=== PATIENT | female | born 1945 | race Caucasian/White ===

== ENCOUNTER 2016-11-28 08:46 | Outpatient (CLI) | payer OTHER ==
[~2016-11-28 08:46] MED LIST: BENICAR20 MG PO; BENICAR40 MG PO; FISH OIL PO; LIPITOR80 MG PO; METFORMIN HCL500 MG PO; MULTIPLE VITAMIN PO; SYNTHROID50 MCG PO; VITAMIN D-31000 UNIT PO
--- NOTE | 2016-11-28 09:57 | DIAGNOSTIC IMAGING REPORT ---
PROCEDURE: US ABDOMEN VASCULAR-AAA INDICATION: AORTIC ANEURYSM TECHNIQUE: [place] scale, color Doppler and spectral ultrasound of the abdominal aorta. COMPARISON: Abdominal ultrasound 08/30/2011 FINDINGS: Prominent plaque formation. Maximal abdominal aortic diameter: Proximal 2.4 cm, mid 2.1 cm and distal 1.5 cm. Aortic peak systolic velocity of 71 cm/sec. Right iliac artery measures 1.1 cm in diameter (peak systolic velocity 172 cm/sec) and left iliac artery measures 1 cm in diameter (peak systolic velocity 130 cm/sec). IMPRESSION: 1. Prominent atherosclerosis but no evidence of an aneurysm 2. Iliac artery velocities suggestive of greater than 50% stenosis
== END 2016-11-28 23:00 ==
LOC: US SRH 08:46
DX: Z87.891 Personal history of nicotine dependence (principal)

== ENCOUNTER 2016-12-19 08:40 | Outpatient (CLI) | payer OTHER ==
--- NOTE | 2016-12-19 13:43 | DIAGNOSTIC IMAGING REPORT ---
PROCEDURE: US ART LOWER EXT WITH JIM-B/L INDICATION: PERIPHERAL ARTERY DISEASE TECHNIQUE: Preexercise ABIs were performed. The patient was exercised (toe-ups) and postexercise ABIs were repeated followed by color Doppler duplex imaging of the lower extremities. COMPARISON: None. FINDINGS: RIGHT LOWER EXTREMITY: ABIs: Pre exercise ABIs: Posterior tibial 0.7 and dorsalis pedis 0.9. VESSELS: Mild plaque. Biphasic wave form throughout the right lower extremity except for monophasic wave form of the dorsalis pedis artery. RIGHT LOWER EXTREMITY PEAK SYSTOLIC VELOCITIES: Common femoral artery: 57 cm/second. Profunda femoral artery: 49 cm/second. Proximal superficial femoral artery: 67 cm/second. Mid superficial femoral artery: 61 cm/second. Distal superficial femoral artery: 53 cm/second. Popliteal artery: 38 cm/second. Proximal posterior tibial artery: 33 cm/second. Proximal anterior tibial artery: 21 cm/second. Distal posterior tibial artery: 33 cm/second. Dorsalis pedis artery: 14 cm/second. LEFT LOWER EXTREMITY: ABIs: Pre exercise ABIs: Posterior tibial 0.7 and dorsalis pedis 0.6. VESSELS: Extensive plaque formation in the mid to distal SFA. Biphasic wave form of the common femoral and proximal SFA, with monophasic wave form through the remainder of the left lower extremity. LEFT LOWER EXTREMITY PEAK SYSTOLIC VELOCITIES: Common femoral artery: 145 cm/second. Profunda femoral artery: 97 cm/second. Proximal superficial femoral artery: 64 cm/second. Mid superficial femoral artery: 20 cm/second. Distal superficial femoral artery: 45 cm/second. Popliteal artery: 27 cm/second. Proximal posterior tibial artery: 25 cm/second. Proximal anterior tibial artery: 18 cm/second. Distal posterior tibial artery: 25 cm/second. Dorsalis pedis artery: Eight cm/second. IMPRESSION: 1. Right lower extremity: Moderate resting arterial insufficiency with mild atherosclerosis 2. Left lower extremity: Moderate resting arterial insufficiency with extensive atherosclerosis of the mid to distal SFA resulting in high grade stenosis.
--- NOTE | 2016-12-20 11:56 | DIAGNOSTIC IMAGING REPORT ---
REFERRING PHYSICIAN/PROVIDER: Belinda Lucero MD CONSULTING [employer]ECUTIVE ADMINISTRATIVE ASST: Everett Elkins Jr MD INDICATION: ABNORMAL EKG Procedure: A two-dimensional transthoracic echocardiogram with color flow and Doppler was performed. A two-dimensional transthoracic echocardiogram with color flow Doppler was performed. The patient was in normal sinus rhythm during the exam. Left Ventricle: The left ventricle is normal in size. There is mild concentric left ventricular hypertrophy. The IVSTd is 12.6 mm, LIVDd is 43.4 mm, and the LVPWTd is 12.6 mm. There is no ventricular septal defect visualized. Left ventricular systolic function is normal without focal wall motion abnormalities. The ejection fraction is estimated to be 55-60%. Assessment of diastolic parameters indicates a relaxation abnormality of the left ventricle, consistent with normal filling pressures. Right Ventricle: The right ventricle is normal in size and function. Atria: Both atria are normal in size. The interatrial septum is intact with no evidence for an atrial septal defect. Mitral Valve: The mitral valve is normal in structure and function. There is no mitral regurgitation noted. Aortic Valve: The aortic valve is trileaflet. The aortic valve opens well. No aortic regurgitation is present. Tricuspid Valve: The tricuspid valve leaflets are thin and pliable. No tricuspid regurgitation. Pulmonary artery pressures cannot be estimated because of the lack of a measurable TR jet velocity. Pulmonic Valve: The pulmonic valve is not well visualized. The pulmonic valve is not well seen, but is grossly normal. There is no pulmonic valvular regurgitation. There is no significant valvular heart disease. Great Vessels: The aortic root is normal size. The dimensions of the ascending aorta are normal. The IVC is of normal diameter and collapses greater than 50% with a sniff. This suggests a low right atrial pressure of 3 mm Hg. Pericardium/ Pleura There is no pericardial effusion. There is an anterior echo-free space consistent with a fat pad. IMPRESSION: There is mild concentric left ventricular hypertrophy. Left ventricular systolic function is normal without focal wall motion abnormalities. The ejection fraction is estimated to be 55-60%. Assessment of diastolic parameters indicates a relaxation abnormality of the left ventricle, consistent with normal filling pressures. The right ventricle is normal in size and function. Pulmonary artery pressures cannot be estimated because of the lack of a measurable TR jet velocity. Both atria are normal in size. There is no significant valvular heart disease. The aortic root is normal size.
== END 2016-12-19 23:00 ==
LOC: US SRH 08:40
DX: I70.203 Unspecified atherosclerosis of native arteries of extremities, bilateral legs (principal); R94.31 Abnormal electrocardiogram [ECG] [EKG]

== ENCOUNTER 2017-01-04 12:04 | Outpatient (CLI) | payer OTHER ==
--- NOTE | 2017-01-09 10:52 | DIAGNOSTIC IMAGING REPORT ---
REFERRING PHYSICIAN/PROVIDER: Hola Lucero MD ATTENDING PHYSICIAN/PROVIDER: Hola Lucero CONSULTING [facility]IL[employer]IR[employer] AND INFANT CARE TEACHER: Belinda Lucero MD PROCEDURE PERFORMED: Pharmacologic stress test with myocardial perfusion imaging and quantitative gated SPECT to evaluate wall motion and left ventricular systolic function. INDICATION: ABNORMAL EKG RADIOPHARMACEUTICAL: Rest dose 10 mCi Tc 99 m Sestamibi Stress test 29 mCi Tc 99m Sestamibi PROCEDURAL DETAILS: Following informed consent the patient walked on Eugenio protocol for 7 minutes and 12 seconds achieving 8.8 minutes. The patient had normal heart rate and blood pressure response. There was [address] depression in leads II, III, avF, V3-V6. There were occasional PVCs. To treadmill score is two. The patient did not have chest pain during physical activity. ECG DATA: Dynamic ST depressions RAW DATA: Normal myocardial tracer uptake. Lung heart ratio is grossly normal. T.i.d. is 1 QUANTITATIVE GATED SPECT: At peak stress ejection fraction 69%. Rest ejection fraction is 68%. There is inferolateral hypokinesis. Otherwise normal wall motion throughout. MYOCARDIAL PERFUSION STUDY: There is a medium size moderate intensity partially reversible lateral wall perfusion defect consistent with ischemia and circumflex territory. SSS 8 SRS 2 SDS 6 IMPRESSION: 1. Abnormal medium risk graded exercise stress test with myocardial perfusion imaging. 2. Medium size moderate intensity partially reversible lateral perfusion defect consistent with ischemia in circumflex artery territory. 3. There is inferolateral hypokinesis. 4. Dynamic ST depressions in inferolateral leads during physical activity
== END 2017-01-04 23:00 | disposition home or self-care (01) ==
LOC: NM SRH 12:04
PROC: 4A02XM4 Measurement of Cardiac Total Activity, External Approach (ICD-10-PCS; principal; 2017-01-04)
PROC: 3E073KZ Introduction of Other Diagnostic Substance into Coronary Artery, Percutaneous Approach (ICD-10-PCS; 2017-01-04)
DX: I25.9 Chronic ischemic heart disease, unspecified (principal); I51.89 Other ill-defined heart diseases